=== PATIENT | male | born 1985 | race Caucasian/White ===

== ENCOUNTER → 2017-01-19 | Day surgery (SDC) | payer OTHER ==
[~2017-01-19] VITALS: Ht 190.5 cm; Wt 102.1 kg
[~2017-01-19] MED LIST: CLARITIN10 M1 PO; FLONASE ALLERG9.9 ML
--- NOTE | 2017-01-19 11:58 | Operative Report ---
Operative/Inv Procedure Report Surgery Date: 01/19/17 Name of Procedure: Anal fistulotomy submuscular Pre-Operative Diagnosis: Anal fistula Post-Operative Diagnosis: Intersphincteric anal fistula Estimated Blood Loss: scant Surgeon/Java Programming Professor: SANTO FUNK JR, DO Anesthesia: local monitored anesthesi, block Monitors: Per routine Drains: None Specimens: None Complications: None Condition: Good Operative Indication: This is a 31-year-old gentleman chronic anal fistula been present over 10 years. This fistula causes him symptoms frequently. He is finally decided to have surgery to alleviate the symptoms Operative/Procedure Note Note: On the morning before his procedure he did a Fleet's enema at home. He presented to [facility] was taken into the operating room and placed in the supine position on the operating room table. IV sedation was initiated and then he was converted to lithotomy in [facility]. The perineum was prepped and draped in usual fashion. An anal block was performed using 0.5% Marcaine with epinephrine. A total of 30 mL was used for the block. After completing the block and gentle digital exam was performed and then a Fansler operating proctoscope was placed into the rectum. The retractor was aligned with the left posterior anal canal. The external opening of the fistula was in the anal margin in the left posterior artery. A probe was placed through the external opening and easily emerged in the left posterior anal canal at the dentate line. This appeared to be an intersphincteric low non-complicated fistula, so a primary fistulotomy was performed. The tissue was divided layer by layer over the probe making sure to identify each individual layer of tissue. A small portion of the internal anal sphincter was divided. After completing the fistulotomy the chronic granulation tissue was debrided with a curet. Hemostasis was achieved with electrocautery. The skin edges were then marsupialized to the base of the wound with interrupted 3-0 Vicryl suture. The procedure was then concluded. The perineum was cleansed and dried. Bacitracin ointment and a bulky dressing were applied. The patient tolerated the procedure well and was converted back to the supine position. At the end of this operational needle sponges and instruments were accounted for. Findings: Left posterior intersphincteric chronic anal fistula Discharge Disposition: PACU
== END ==
LOC: STS 01:40
DX: K60.3 Anal fistula (principal); K76.0 Fatty (change of) liver, not elsewhere classified
CPT/HCPCS: J0131; J1100; J1885; J2250; J2405